=== PATIENT | male | born 1990 | race Caucasian/White ===

== ENCOUNTER → 2016-04-23 | Outpatient (CLI) | payer BC ==
--- NOTE | 2016-04-24 09:51 | MR ---
MRI right foot HISTORY: Right foot pain Multiplanar multisequence imaging through the right foot. No plain film supplied for correlation. There is motion on the exam which may limit sensitivity. There are arthropathy changes present at the first tarsometatarsal joint, subchondral reactive marrow edema, marginal spurring and possibly subch ondral geode formation, sclerosis present. There is fluid signal present along the flexor hallucis lo ngus tendon compatible with tenosynovitis. There may be an associated ganglion cyst at the posterior ankle joint is not entirely included on the exam. Plantar aponeurosis is intact, Achilles tendon inta ct. Distal fourth metatarsal shows some marrow edema possibly due to stress changes, difficult to exc lude posttraumatic change, no definite periostitis to suggest healing fracture. Infection felt to be less likely. IMPRESSION: Osteoarthritic change first digit, Deepa synovitis flexor hallucis longus tendon. There is motion on the exam. Findings of the fourth digit as described. Follow-up as indicated.
== END | disposition home or self-care (01) ==
LOC: RADMRIMAIN 17:37
PROVIDERS: ATTEND Family Medicine
DX: M19.071 Primary osteoarthritis, right ankle and foot (principal); M65.871 Other synovitis and tenosynovitis, right ankle and foot

== ENCOUNTER 2016-05-27 16:38 | Emergency (ER) | payer BC ==
[2016-05-27] MEDS ORDERED: ONDANSETRON 4 MG/2 ML VIAL IVP STA (17:16)
[2016-05-27] MEDS ORDERED: MAG HYDROX/AL HYDROX/SIMETH 30 ML CUP PO PRN (17:16)
[2016-05-27] MEDS ORDERED: SODIUM CHLORIDE 0.9% 2,000 ML IV ONE (17:16)
[2016-05-27] MEDS ORDERED: LIDOCAINE VISCOUS 2% 15 ML CUP MUCOUS MEM STA (17:16)
[2016-05-27] MEDS ORDERED: FAMOTIDINE 20 MG/2 ML VIAL IV STA (17:16)
[2016-05-27] MEDS ORDERED: DICYCLOMINE 10 MG/ML 2 ML AMP IM STA (17:18)
--- NOTE | 2016-05-27 17:20 | ED ---
Nausea/Vomiting/Diarrhea HPI - General Chief complaint: Nausea/Vomiting/Diarrhea Stated complaint: Vomiting Source: patient Mode of arrival: ambulatory Limitations: no limitations - History of Present Illness Initial comments: Patient is a pleasant 25-year-old male who presents for evaluation for 1 day history of nausea vomiting and diarrhea. Past medical history as below. He stated that he woke up this morning and did not feel well. He has generalized abdominal cramping. He describes it as "an irritating pain". Mainly located around the umbilicus. Studies vomited at least 47 times today which is mainly stomach contents. He's had multiple episodes of diarrhea which was yellow/ brown. It is associated chills. He has a sore throat from all the vomiting. States that he feels a little short of breath. Did not take any medications at home. Tried to drink some milk to settle his stomach which did not help. No known sick contacts. No recent travel. He denies URI symptoms, cough, chest pain, pain or burning with urination. - Related Data Previous Rx's Medication Instructions Recorded Dicyclomine [Bentyl] 20 mg PO QID PRN #10 tablet 05/27/16 Ondansetron Odt [Zofran Odt] 4 mg PO Q12HR PRN #10 tab 05/27/16 Allergies Allergy/AdvReac Type Severity Reaction Status Date / Time No Known Allergies Allergy Verified 05/27/16 17:31 Review of Systems ROS Statement: Those systems with pertinent positive or pertinent negative responses have been documented in the HPI. ROS Other: All systems not noted in ROS Statement are negative. Past Medical History Past Medical History: No Reported History History of Any Multi-Drug Resistant Organisms: None Reported Past Surgical History: Hernia Repair Past Psychological History: No Psychological Hx Reported Smoking Status: Never smoker Past Alcohol Use History: None Reported Past Drug Use History: None Reported General Exam Limitations: no limitations General appearance: alert, in no apparent distress, other (Appears fatigued.) Head exam: Present: atraumatic, normocephalic, normal inspection Eye exam: Present: normal appearance, PERRL, EOMI. Absent: scleral icterus, conjunctival injection, periorbital swelling ENT exam: Present: normal exam, mucous membranes moist Neck exam: Present: normal inspection. Absent: tenderness, meningismus, lymphadenopathy Respiratory exam: Present: normal lung sounds bilaterally, other (Clear bilaterally without wheezes rales or rhonchi.). Absent: respiratory distress, wheezes, rales, rhonchi, stridor Cardiovascular Exam: Present: regular rate, normal rhythm, normal heart sounds. Absent: systolic murmur, diastolic murmur, rubs, gallop, clicks GI/Abdominal exam: Present: soft, tenderness, normal bowel sounds, other ( Generalized tenderness with palpation of the abdomen. Somewhat more tender in the periumbilical area and in the right lower quadrant. Negative rebound tenderness. Negative Rovsing sign. Negative obturator and psoas sign. No peritoneal signs.). Absent: distended, guarding, rebound, rigid Extremities exam: Present: normal inspection, full ROM, normal capillary refill. Absent: tenderness, pedal edema, joint swelling, calf tenderness Back exam: Present: normal inspection Neurological exam: Present: alert, oriented X3, CN II-XII intact Psychiatric exam: Present: normal affect, normal mood Skin exam: Present: warm, dry, intact, normal color. Absent: rash Course Vital Signs 05/27/16 05/27/16 17:03 20:04 Temperature 98.2 F 97.9 F Pulse Rate 89 95 Respiratory 20 16 Rate Blood Pressure 127/77 120/72 O2 Sat by Pulse 98 99 Oximetry Medical Decision Making - Medical Decision Making Patient presents for evaluation for 1 day history of nausea vomiting and diarrhea. His symptom onset and physical exam is more consistent with a viral etiology at this time. We'll order basic labs with 2 L IV fluids, GI cocktail. Bentyl for the pain. Had a discussion with the patient about possibility of acute appendicitis. Will reevaluate the patient after medications to see how he is doing. 1829: Reviewed laboratory studies. Significant leukocytosis at 16,000. Appears little dehydrated with small elevation his BUN and hemoconcentration. Rest of studies within normal limits. Reevaluated the patient continues to have right lower quadrant abdominal pain. He stated that the bentyl did not help at all. His nausea and vomiting is somewhat improved. Clinically appears more improved. Will order a dose of morphine and get a CT abdomen and pelvis for concern for possible early appendicitis. 1950: Reviewed CT findings. No signs of acute appendicitis. Reevaluated the patient and he does continue to feel better. The morphine helped. Believe that the patient has a viral illness at this time with nausea vomiting and diarrhea. There is no acute process on CT. Discussed with the patient. We'll discharge home with Bentyl and Zofran as needed for the stomach cramping and the nausea and vomiting. Encouraged a bland diet over the next 24-48 hours. Encourage close follow-up with his primary care physician in the next 24 hours especially if he continues to have abdominal pain. Will return here if the pain persists or changes. Discussed further symptoms on when to return to the emergency department for further evaluation. He voiced understanding and will follow-up. - Lab Data Result diagrams: 05/27/16 17:50 05/27/16 17:50 Lab Results 05/27/16 05/27/16 05/27/16 Range/Units 17:50 17:50 17:50 WBC 16.7 H (3.8-10.6) k/uL RBC 6.03 H (4.30-5.90) m/uL Hgb 17.9 H (13.0-17.5) gm/dL Hct 53.9 H (39.0-53.0) % MCV 89.5 (80.0-100.0) fL MCH 29.7 (25.0-35.0) pg MCHC 33.1 (31.0-37.0) g/dL RDW 13.2 (11.5-15.5) % Plt Count 188 (150-450) k/uL Neutrophils % 94 % Lymphocytes % 2 % Monocytes % 3 % Eosinophils % 0 % Basophils % 0 % Neutrophils # 15.7 H (1.3-7.7) k/uL Lymphocytes # 0.3 L (1.0-4.8) k/uL Monocytes # 0.5 (0-1.0) k/uL Eosinophils # 0.0 (0-0.7) k/uL Basophils # 0.0 (0-0.2) k/uL Sodium 145 (137-145) mmol/L Potassium 4.7 (3.5-5.1) mmol/L Chloride 106 (98-107) mmol/L Carbon Dioxide 21 L (22-30) mmol/L Anion Gap 18 mmol/L BUN 23 H (9-20) mg/dL Creatinine 1.17 (0.66-1.25) mg/dL Est GFR (MDRD) Af Amer >60 (>60 ml/min/1.73 sqM) Est GFR (MDRD) Non-Af >60 (>60 ml/min/1.73 sqM) Glucose 146 H (74-99) mg/dL Calcium 11.1 H (8.4-10.2) mg/dL Total Bilirubin 0.8 (0.2-1.3) mg/dL AST 19 (17-59) U/L ALT 30 (21-72) U/L Alkaline Phosphatase 56 (38-126) U/L Total Protein 9.4 H (6.3-8.2) g/dL Albumin 5.4 H (3.5-5.0) g/dL Urine Color Urine Appearance (Clear) Urine pH (5.0-8.0) Ur Specific [place] (1.001-1.035) Urine Protein (Negative) Urine Glucose (UA) (Negative) Urine Ketones (Negative) Urine Blood (Negative) Urine Nitrite (Negative) Urine Bilirubin (Negative) Urine Urobilinogen (<2.0) mg/dL Ur Leukocyte Esterase (Negative) Urine RBC (0-5) /hpf Urine WBC (0-5) /hpf Ur Squamous Epith Cells (0-4) /hpf Amorphous Sediment (None) /hpf Urine Mucus (None) /hpf Influenza Type A RNA Not Detected (Not Detectd) Influenza Type B (PCR) Not Detected (Not Detectd) 05/27/16 Range/Units 18:11 WBC (3.8-10.6) k/uL RBC (4.30-5.90) m/uL Hgb (13.0-17.5) gm/dL Hct (39.0-53.0) % MCV (80.0-100.0) fL MCH (25.0-35.0) pg MCHC (31.0-37.0) g/dL RDW (11.5-15.5) % Plt Count (150-450) k/uL Neutrophils % % Lymphocytes % % Monocytes % % Eosinophils % % Basophils % % Neutrophils # (1.3-7.7) k/uL Lymphocytes # (1.0-4.8) k/uL Monocytes # (0-1.0) k/uL Eosinophils # (0-0.7) k/uL Basophils # (0-0.2) k/uL Sodium (137-145) mmol/L Potassium (3.5-5.1) mmol/L Chloride (98-107) mmol/L Carbon Dioxide (22-30) mmol/L Anion Gap mmol/L BUN (9-20) mg/dL Creatinine (0.66-1.25) mg/dL Est GFR (MDRD) Af Amer (>60 ml/min/1.73 sqM) Est GFR (MDRD) Non-Af (>60 ml/min/1.73 sqM) Glucose (74-99) mg/dL Calcium (8.4-10.2) mg/dL Total Bilirubin (0.2-1.3) mg/dL AST (17-59) U/L ALT (21-72) U/L Alkaline Phosphatase (38-126) U/L Total Protein (6.3-8.2) g/dL Albumin (3.5-5.0) g/dL Urine Color Yellow Urine Appearance Cloudy (Clear) Urine pH 5.5 (5.0-8.0) Ur Specific [place] 1.032 (1.001-1.035) Urine Protein 1+ H (Negative) Urine Glucose (UA) Negative (Negative) Urine Ketones 1+ H (Negative) Urine Blood Negative (Negative) Urine Nitrite Negative (Negative) Urine Bilirubin Negative (Negative) Urine Urobilinogen 2.0 (<2.0) mg/dL Ur Leukocyte Esterase Negative (Negative) Urine RBC 1 (0-5) /hpf Urine WBC 3 (0-5) /hpf Ur Squamous Epith Cells 2 (0-4) /hpf Amorphous Sediment Few H (None) /hpf Urine Mucus Many H (None) /hpf Influenza Type A RNA (Not Detectd) Influenza Type B (PCR) (Not Detectd) Disposition Clinical Impression: Nausea vomiting and diarrhea, Leukocytosis, Dehydration, Viral illness Disposition: HOME SELF-CARE Condition: Good Instructions: Acute Nausea and Vomiting (ED), Acute Diarrhea (ED) Prescriptions: Dicyclomine [Bentyl] 20 mg PO QID PRN #10 tablet PRN Reason: Pain Ondansetron Odt [Zofran Odt] 4 mg PO Q12HR PRN #10 tab PRN Reason: Nausea And Vomiting Referrals: Alberto Newton DO [Primary Care Provider] - 1-2 days
[2016-05-27 18:20] LABS: Basophils % (A) 0 %; CHCM 33.7; Eosinophils % (A) 0 %; HCT 53.9 % (39.0-53.0); HDW 2.58; HGB 17.9 gm/dL (13.0-17.5); Luc # (Auto) 0.13; Luc % (Auto) 1; Lymphocytes # (A) 0.3 k/uL (1.0-4.8); Lymphocytes % (A) 2 %; MCH 29.7 pg (25.0-35.0); MCHC 33.1 g/dL (31.0-37.0); MCV 89.5 fL (80.0-100.0); Mean Platelet Volume 9.6; Monocytes # (A) 0.5 k/uL (0-1.0); Monocytes % (A) 3 %; Neutrophils # (A) 15.7 k/uL (1.3-7.7); Neutrophils % (A) 94 %; RBC 6.03 m/uL (4.30-5.90); RDW 13.2 % (11.5-15.5); WBC 16.7 k/uL (3.8-10.6)
[2016-05-27 18:29] LABS: ALT 30 U/L (21-72); AST 19 U/L (17-59); Alkaline Phosphatase 56 U/L (38-126); Anion Gap 18 mmol/L; Blood Urea Nitrogen 23 mg/dL (9-20); Calcium 11.1 mg/dL (8.4-10.2); Carbon Dioxide 21 mmol/L (22-30); Chloride 106 mmol/L (98-107); Glucose 146 mg/dL (74-99); Non-African American GFR(MDRD) >60 (>60 ml/min/1.73 sqM); Potassium 4.7 mmol/L (3.5-5.1); Sodium 145 mmol/L (137-145); Total Bilirubin 0.8 mg/dL (0.2-1.3); Total Protein 9.4 g/dL (6.3-8.2)
[2016-05-27 18:30] LABS: Amorphous Sediment,Urine Few /hpf; Appearance,Urine Cloudy (Clear); Bilirubin,Urine Negative (Negative); Glucose,Urine (UA) Negative (Negative); Ketones,Urine 1+ (Negative); Leukocyte Esterase,Urine Negative (Negative); Mucus,Urine Many /hpf; Nitrite,Urine Negative (Negative); PH, Urine 5.5 (5.0-8.0); Particle Count 13448; Protein,Urine 1+ (Negative); RBC,Urine 1 /hpf (0-5); Specific Gravity,Urine 1.032 (1.001-1.035); Squamous Epithelial Cell,Urine 2 /hpf (0-4); UA Billing (MACRO vs. MICRO) MICRO; WBC,Urine 3 /hpf (0-5)
[2016-05-27] MEDS ORDERED: RX INFO: IV CONTRAST WAS GIVEN 1 EACH MISC MISCELLANE PRN (18:32)
[2016-05-27] MEDS ORDERED: MORPHINE SULFATE 4 MG/ML SYRINGE IVP STA (18:33)
--- NOTE | 2016-05-27 19:23 | CT ---
EXAMINATION TYPE: CT abdomen pelvis w con DATE OF EXAM: 05/27/2016 7:08 PM COMPARISON: CT abdomen and pelvis December 14, 2015 HISTORY: Nausea, vomiting, and diarrhea today. CT DLP: 594.1 mGycm, Automated Exposure Control for Dose Reduction was Utilized. CONTRAST: CT scan of the abdomen and pelvis is performed without oral and with IV Contrast, patient injected wi th 100 mL of Omnipaque 300. FINDINGS: LUNG BASES: No significant abnormality is appreciated. LIVER/GB: No significant abnormality is appreciated. PANCREAS: No significant abnormality is seen. SPLEEN: No significant abnormality is seen. ADRENALS: No significant abnormality is seen. KIDNEYS: No significant abnormality is seen. BOWEL: There is fluid-filled prominent stomach. There is no suspicious small or large bowel dilatatio n. Appendix is felt within normal limits from the base of the cecum. Evaluation bowel is suboptimal d ue to lack of enteric contrast. PROSTATE/SEMINAL VESICLES: Prominent central calcification prostate gland is stable on axial image 86 . LYMPH NODES: No greater than 1cm abdominal or pelvic lymph nodes are appreciated. OSSEOUS STRUCTURES: No significant abnormality is seen. OTHER: No significant additional abnormality is seen. IMPRESSION: No renal stones or hydronephrosis is present bilaterally on current study. No significan t acute finding is seen to account for patient's clinical symptoms.
[2016-05-27 20:05] VITALS: BP 120/72; PULSE 95; RESP 16; TEMP 97.9
== END 2016-05-27 20:09 | disposition home or self-care (01) ==
LOC: EC 16:38
DX: E86.0 Dehydration (principal); D72.829 Elevated white blood cell count, unspecified; B34.9 Viral infection, unspecified; R06.02 Shortness of breath; R10.31 Right lower quadrant pain
CPT/HCPCS: 99284; 96374; 96375 ×2; 96361 ×2; 96372; 36415; 80053; 85025; 81001; 87502; 74177; J2270; J0500; J2405; Q9967

== ENCOUNTER 2016-06-22 14:36 | Emergency (ER) | payer BC ==
[2016-06-22 14:46] VITALS: BP 119/71; PULSE 89; RESP 18; TEMP 98
[2016-06-22] MEDS ORDERED: KETOROLAC 60 MG/2 ML VIAL IM STA (14:53)
[2016-06-22] MEDS ORDERED: DIPH,PERTUS(ACELL)TETVAC-LF 0.5 ML VIAL IM ONE (14:53)
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
--- NOTE | 2016-06-22 15:08 | XR ---
EXAMINATION TYPE: XR tibia fibula RT DATE OF EXAM ORDERED: 06/22/2016 3:03 PM HISTORY: Pain. COMPARISON: None. FINDINGS: No fracture, dislocation or other acute osseous lesion is seen. IMPRESSION: NORMAL RIGHT TIBIA AND FIBULA.
== END 2016-06-22 15:53 | disposition home or self-care (01) ==
LOC: EC 14:36
DX: S80.811A Abrasion, right lower leg, initial encounter (principal); F41.9 Anxiety disorder, unspecified; Z53.20 Procedure and treatment not carried out because of patient's decision for unspecified reasons; Z79.899 Other long term (current) drug therapy; V86.09XA Driver of other special all-terrain or other off-road motor vehicle injured in traffic accident, initial encounter; Y93.89 Activity, other specified; Y92.410 Unspecified street and highway as the place of occurrence of the external cause
CPT/HCPCS: 99283; 96372; 73590; J1885

== ENCOUNTER 2016-06-24 06:47 | Emergency (ER) | payer BC ==
[2016-06-24 07:07] VITALS: BP 136/101; PULSE 111; RESP 20; TEMP 98.1
[2016-06-24] MEDS ORDERED: DIPH,PERTUS(ACELL)TETVAC-LF 0.5 ML VIAL IM ONE (07:42)
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
== END 2016-06-24 08:58 | disposition home or self-care (01) ==
LOC: EC 06:47
DX: S80.11XA Contusion of right lower leg, initial encounter (principal); Z79.1 Long term (current) use of non-steroidal anti-inflammatories (NSAID); Z23 Encounter for immunization; V86.0 Driver of special all-terrain or other off-road motor vehicle injured in traffic accident
CPT/HCPCS: 90471; 90715; 99283